=== PATIENT | female | born 1960 | race Caucasian/White ===

== ENCOUNTER 2022-09-14 11:22 | Inpatient (IN) | payer MEDICAID ==
[~2022-09-14] VITALS: Ht 167.6 cm; Wt 59.1 kg
[2022-09-14 19:19] LABS: BASOPHILS % (AUTO) 0.6 % (0-1); EOSINOPHILS # (AUTO) 0.1 X10'3 (0-0.9); EOSINOPHILS % (AUTO) 1.8 % (0-6); HEMATOCRIT 37.5 % (35.0-45.0); HEMOGLOBIN 12.9 g/dl (12.0-16.0); LYMPHOCYTES # (AUTO) 2.5 X10'3 (1.1-4.8); LYMPHOCYTES % (AUTO) 43.6 % (21-51); MEAN CORPUSCULAR HEMOGLOBIN 31.7 PG (27.0-31.0); MEAN CORPUSCULAR HGB CONC 34.3 g/dL (33.0-36.5); MEAN CORPUSCULAR VOLUME 92.4 FL (78-98); MEAN PLATELET VOLUME 7.6 FL (7.4-10.4); MONOCYTES # (AUTO) 0.5 X10'3 (0-0.9); MONOCYTES % (AUTO) 9.4 % (2-12); NEUTROPHILS # (AUTO) 2.6 X10'3 (1.8-7.7); NEUTROPHILS % (AUTO) 44.6 % (42-75); PLATELET COUNT 425 X10'3 (140-440); RED BLOOD COUNT 4.06 X10'6 (4.20-5.60); RED CELL DISTRIBUTION WIDTH 15.1 % (11.5-14.5); WHITE BLOOD COUNT 5.8 X10'3 (4.5-11.0)
[2022-09-14 19:27] LABS: ALANINE AMINOTRANSFERASE 61 U/L (12-78); ALBUMIN 3.1 G/DL (3.4-5.0); ALBUMIN/GLOBULIN RATIO 0.9 (1.1-1.5); ALKALINE PHOSPHATASE 93 IU/L (46-116); ANION GAP 6 (8-16); ASPARTATE AMINO TRANSFERASE 20 U/L (10-37); BILIRUBIN,TOTAL 0.2 MG/DL (0.1-1.0); BLOOD UREA NITROGEN 27 MG/DL (7-18); BUN/CREATININE RATIO 38.6 (6.6-38.0); CALCIUM 9.1 MG/DL (8.5-10.1); CHLORIDE 106 MMOL/L (99-107); GLUCOSE 91 MG/DL (70-104); POTASSIUM 4.1 MMOL/L (3.5-5.1); SODIUM 143 MMOL/L (135-145); TOTAL CARBON DIOXIDE 30.7 MMOL/L (24-32); TOTAL PROTEIN 6.5 G/DL (6.4-8.2); eGFR 85 ML/MIN
[2022-09-14 20:54] LABS: CLARITY,URINE SLIGHTLY CLOUDY (Clear); COLOR,URINE YELLOW (Yellow); GLUCOSE, URINE NEGATIVE (Neg); KETONES,URINE NEGATIVE (Neg); LEUKOCYTE ESTERASE ,URINE NEGATIVE (Neg); NITRITES, URINE NEGATIVE (Neg); OCCULT BLOOD,URINE NEGATIVE (Neg); PROTEIN,URINE NEGATIVE (Neg); UROBILINOGEN,URINE 0.2 E.U/dL (0.2-1.0)
[2022-09-14 21:19] LABS: UA COLLECTION TYPE NON-SPECIFIED
[2022-09-14 21:20] LABS: BACTERIA,URINE NONE SEEN /HPF (Neg); MUCUS STRANDS MODERATE /LPF (Neg); RBC,URINE NONE SEEN /HPF (0-2); SQUAMOUS EPITHELIAL CELL,UR FEW /LPF (FEW); WBC,URINE 0-4 /HPF (0-4)
[2022-09-14 21:21] LABS: URIC ACID CRYSTALS 2+ /HPF (NEGATIVE)
[2022-09-14] MEDS ORDERED: ondansetron/PF 4mg/2ml inj IV PRN (23:35)
[2022-09-14] MEDS ORDERED: potassium Cl 40MEQ/1/2NS 520ml 520 ML IV PRN (23:35)
[2022-09-14] MEDS ORDERED: acetaminophen 325mg tablet PO PRN (23:35)
[2022-09-14] MEDS ORDERED: potassium Cl 20 mEq SR tablet PO PRN ×2 (23:35)
[2022-09-14] MEDS ORDERED: magnesium Cl slow-release 64mg tablet PO PRN (23:35)
[2022-09-14] MEDS ORDERED: magnesium 4gm in 100ml NS 100 ML IV PRN (23:35)
[2022-09-15] MEDS: normal saline 1000ml 1,000 ML IV SCH ×3 (04:45→20:41)
[2022-09-15] MEDS: amLODIPine 5mg tablet PO SCH ×2 (04:59→08:18)
[2022-09-15 05:05] LABS: BASOPHILS % (AUTO) 0.6 % (0-1); EOSINOPHILS # (AUTO) 0.2 X10'3 (0-0.9); EOSINOPHILS % (AUTO) 2.7 % (0-6); HEMATOCRIT 37.3 % (35.0-45.0); HEMOGLOBIN 12.5 g/dl (12.0-16.0); LYMPHOCYTES # (AUTO) 3.1 X10'3 (1.1-4.8); LYMPHOCYTES % (AUTO) 53.1 % (21-51); MEAN CORPUSCULAR HEMOGLOBIN 31.5 PG (27.0-31.0); MEAN CORPUSCULAR HGB CONC 33.6 g/dL (33.0-36.5); MEAN PLATELET VOLUME 8.2 FL (7.4-10.4); MONOCYTES # (AUTO) 0.6 X10'3 (0-0.9); MONOCYTES % (AUTO) 9.8 % (2-12); NEUTROPHILS % (AUTO) 33.8 % (42-75); PLATELET COUNT 365 X10'3 (140-440); RED BLOOD COUNT 3.97 X10'6 (4.20-5.60); RED CELL DISTRIBUTION WIDTH 15.5 % (11.5-14.5); WHITE BLOOD COUNT 5.8 X10'3 (4.5-11.0)
[2022-09-15 05:30] LABS: ALANINE AMINOTRANSFERASE 53 U/L (12-78); ALBUMIN 2.9 G/DL (3.4-5.0); ALBUMIN/GLOBULIN RATIO 0.9 (1.1-1.5); ALKALINE PHOSPHATASE 84 IU/L (46-116); ANION GAP 8 (8-16); ASPARTATE AMINO TRANSFERASE 22 U/L (10-37); BILIRUBIN,TOTAL 0.3 MG/DL (0.1-1.0); BLOOD UREA NITROGEN 20 MG/DL (7-18); BUN/CREATININE RATIO 33.3 (6.6-38.0); CALCIUM 8.7 MG/DL (8.5-10.1); CHLORIDE 108 MMOL/L (99-107); GLUCOSE 90 MG/DL (70-104); POTASSIUM 3.7 MMOL/L (3.5-5.1); SODIUM 141 MMOL/L (135-145); TOTAL CARBON DIOXIDE 24.9 MMOL/L (24-32); TOTAL PROTEIN 6.1 G/DL (6.4-8.2); eGFR > 90 ML/MIN
[2022-09-15 06:00] LABS: PLATELET ESTIMATE NORMAL; TOTAL CELLS COUNTED 100
[2022-09-15] MEDS: K and/or MAG REPLACEMENT MC SCH ×2 (07:54→20:00)
[2022-09-15] MEDS: heparin, porcine 5000 units/ml vial SQ SCH ×2 (08:17→20:38)
[2022-09-15] MEDS ORDERED: LORazepam 2 mg/ml vial IV ONE ×2 (10:50→10:55)
--- NOTE | 2022-09-15 11:30 | NUR ---
called Doctor Crouch about the pt having anxiety about going to MRI. New meds have been ordered for MRI. Ativan will be given at 1200 for MRI
--- NOTE | 2022-09-15 12:58 | NUR ---
pt is in MRI
[2022-09-15] MEDS ORDERED: ERGO50002 PO (15:30)
[2022-09-15] MEDS ORDERED: HALO2TAB PO (15:30)
[2022-09-15] MEDS ORDERED: MELA1TAB52 PO (15:30)
[2022-09-15] MEDS ORDERED: AMLO10TA PO (15:30)
[2022-09-15 19:20] VITALS: BP 127/82
[2022-09-15 20:19] VITALS: BP 124/90
[2022-09-15] MEDS ORDERED: Melatonin 3mg tablet PO SCH (21:00)
--- NOTE | 2022-09-15 21:15 | NUR ---
DO Sandoval notified that patient had a ground level fall while trying to get out of bed by herself at approximately 2019. Patient was found by BANDAR Worley who stated patient was on her back and denied hitting her head. VSS with no c/o pain at this time. Patient was assisted back to bed with help from BANDAR Worley and Bernarda FAM. My assessment of patient showed no injuries and patient continues to deny any pain. Tabs and Bed alarm have been placed for patient safety. Will continue to monitor.
--- NOTE | 2022-09-15 21:24 | NUR ---
Received orders from MD to change current Melatonin order from 2mg PO to 3mg PO r/t not having 2MG tablets in pharmacy. New order placed at this time.
[2022-09-15] MEDS ORDERED: Melatonin 3mg tablet PO ONE (21:25)
[2022-09-15 22:00] VITALS: BP 129/73
[2022-09-16 06:00] VITALS: BP 135/83
[2022-09-16 06:03] LABS: EOSINOPHILS # (AUTO) 0.1 X10'3 (0-0.9); EOSINOPHILS % (AUTO) 2.6 % (0-6); LYMPHOCYTES # (AUTO) 2.3 X10'3 (1.1-4.8); MONOCYTES # (AUTO) 0.4 X10'3 (0-0.9); NEUTROPHILS # (AUTO) 1.7 X10'3 (1.8-7.7); WHITE BLOOD COUNT 4.6 X10'3 (4.5-11.0)
[2022-09-16 06:06] LABS: BASOPHILS % (AUTO) 0.7 % (0-1); HEMOGLOBIN 12.8 g/dl (12.0-16.0); MEAN CORPUSCULAR HEMOGLOBIN 31.8 PG (27.0-31.0); MEAN CORPUSCULAR HGB CONC 34.6 g/dL (33.0-36.5); MEAN CORPUSCULAR VOLUME 91.8 FL (78-98); MEAN PLATELET VOLUME 8.2 FL (7.4-10.4); MONOCYTES % (AUTO) 8.7 % (2-12); PLATELET COUNT 343 X10'3 (140-440); RED BLOOD COUNT 4.03 X10'6 (4.20-5.60); RED CELL DISTRIBUTION WIDTH 15.3 % (11.5-14.5)
--- NOTE | 2022-09-16 06:13 | NUR ---
Report given to Onel FAM.
[2022-09-16 06:25] LABS: ALANINE AMINOTRANSFERASE 55 U/L (12-78); ALBUMIN 3.1 G/DL (3.4-5.0); ALBUMIN/GLOBULIN RATIO 0.9 (1.1-1.5); ALKALINE PHOSPHATASE 74 IU/L (46-116); ANION GAP 8 (8-16); ASPARTATE AMINO TRANSFERASE 29 U/L (10-37); BILIRUBIN,TOTAL 0.7 MG/DL (0.1-1.0); BLOOD UREA NITROGEN 7 MG/DL (7-18); BUN/CREATININE RATIO 14.3 (6.6-38.0); CALCIUM 8.9 MG/DL (8.5-10.1); CHLORIDE 106 MMOL/L (99-107); CREATININE 0.49 MG/DL (0.40-0.90); GLUCOSE 86 MG/DL (70-104); POTASSIUM 3.5 MMOL/L (3.5-5.1); SODIUM 140 MMOL/L (135-145); TOTAL CARBON DIOXIDE 25.8 MMOL/L (24-32); TOTAL PROTEIN 6.5 G/DL (6.4-8.2); eGFR > 90 ML/MIN
--- NOTE | 2022-09-16 06:42 | NUR ---
Patient in room [facility] 360. I have received report from OLIVER FAM and had the opportunity to ask questions and assume patient care.
[2022-09-16] MEDS: K and/or MAG REPLACEMENT MC SCH ×2 (08:00→20:00)
[2022-09-16] MEDS: normal saline 1000ml 1,000 ML IV SCH ×3 (08:22→20:35)
[2022-09-16] MEDS: amLODIPine 5mg tablet PO SCH (08:23)
[2022-09-16] MEDS: heparin, porcine 5000 units/ml vial SQ SCH ×2 (08:25→20:38)
[2022-09-16 11:00] VITALS: BP 111/78
--- NOTE | 2022-09-16 15:20 | NUR ---
PAGER ID: [phone] MESSAGE: [phone] b Cj, daughter Sheba is here she would like to talk to you about her mothers condition and results from tests. thanks suzan [phone]
[2022-09-16 19:00] VITALS: BP 108/82
--- NOTE | 2022-09-16 19:05 | NUR ---
Patient in room [facility] 360. I have received report from RAY FAM and had the opportunity to ask questions and assume patient care.
--- NOTE | 2022-09-16 19:05 | NUR ---
Problems reprioritized. Patient report given, questions answered & plan of care reviewed with christina vasquez rn.
[2022-09-16] MEDS: haloperidol 1mg tablet PO SCH (20:37)
[2022-09-16] MEDS: Melatonin 3mg tablet PO SCH (20:38)
[2022-09-16 23:00] VITALS: BP 123/73
[2022-09-17] MEDS: normal saline 1000ml 1,000 ML IV SCH ×2 (05:29→21:35)
[2022-09-17 06:00] VITALS: BP 118/68
--- NOTE | 2022-09-17 06:27 | NUR ---
Problems reprioritized. Patient report given, questions answered & plan of care reviewed with RAY FAM.
[2022-09-17 06:39] LABS: BASOPHILS % (AUTO) 0.4 % (0-1); EOSINOPHILS # (AUTO) 0.1 X10'3 (0-0.9); EOSINOPHILS % (AUTO) 2.3 % (0-6); HEMATOCRIT 36.3 % (35.0-45.0); HEMOGLOBIN 12.4 g/dl (12.0-16.0); LYMPHOCYTES # (AUTO) 2.4 X10'3 (1.1-4.8); LYMPHOCYTES % (AUTO) 52.6 % (21-51); MEAN CORPUSCULAR HEMOGLOBIN 31.5 PG (27.0-31.0); MEAN CORPUSCULAR HGB CONC 34.2 g/dL (33.0-36.5); MEAN CORPUSCULAR VOLUME 92.2 FL (78-98); MEAN PLATELET VOLUME 7.9 FL (7.4-10.4); MONOCYTES # (AUTO) 0.4 X10'3 (0-0.9); MONOCYTES % (AUTO) 9.4 % (2-12); NEUTROPHILS # (AUTO) 1.6 X10'3 (1.8-7.7); NEUTROPHILS % (AUTO) 35.3 % (42-75); PLATELET COUNT 323 X10'3 (140-440); RED BLOOD COUNT 3.94 X10'6 (4.20-5.60); RED CELL DISTRIBUTION WIDTH 15.5 % (11.5-14.5); WHITE BLOOD COUNT 4.6 X10'3 (4.5-11.0)
--- NOTE | 2022-09-17 06:42 | NUR ---
Patient in room [facility] 360. I have received report from EVERT LOYD RN and had the opportunity to ask questions and assume patient care.
[2022-09-17 07:00] LABS: ALANINE AMINOTRANSFERASE 44 U/L (12-78); ALBUMIN 2.7 G/DL (3.4-5.0); ALBUMIN/GLOBULIN RATIO 0.8 (1.1-1.5); ALKALINE PHOSPHATASE 73 IU/L (46-116); ANION GAP 8 (8-16); ASPARTATE AMINO TRANSFERASE 19 U/L (10-37); BILIRUBIN,TOTAL 0.5 MG/DL (0.1-1.0); BLOOD UREA NITROGEN 12 MG/DL (7-18); BUN/CREATININE RATIO 18.8 (6.6-38.0); CALCIUM 8.8 MG/DL (8.5-10.1); CHLORIDE 107 MMOL/L (99-107); CREATININE 0.64 MG/DL (0.40-0.90); GLUCOSE 100 MG/DL (70-104); SODIUM 139 MMOL/L (135-145); TOTAL CARBON DIOXIDE 24.3 MMOL/L (24-32); eGFR > 90 ML/MIN
[2022-09-17 07:54] LABS: PLATELET ESTIMATE NORMAL; TOTAL CELLS COUNTED 100
[2022-09-17] MEDS: K and/or MAG REPLACEMENT MC SCH ×2 (08:00→20:00)
[2022-09-17] MEDS: heparin, porcine 5000 units/ml vial SQ SCH ×2 (10:29→21:40)
[2022-09-17 11:00] VITALS: BP 127/81
--- NOTE | 2022-09-17 13:38 | NUR ---
Problems reprioritized. Patient report given, questions answered & plan of care reviewed with Selene FAM on PCU for Pt transfer .
[2022-09-17 13:59] VITALS: BP 139/84
[2022-09-17 18:00] VITALS: BP 139/84
--- NOTE | 2022-09-17 18:40 | NUR ---
Patient in room U 3027. I have received report from CRISTEL Augustine and had the opportunity to ask questions and assume patient care. Patient sitting up in bed, no obvious distress
[2022-09-17] MEDS: amLODIPine 5mg tablet PO SCH (21:39)
[2022-09-17] MEDS: Melatonin 3mg tablet PO SCH (21:39)
[2022-09-17 22:00] VITALS: BP 117/77
[2022-09-17] MEDS: haloperidol 1mg tablet PO SCH (22:56)
[2022-09-18 03:23] VITALS: BP 110/78
[2022-09-18] MEDS: normal saline 1000ml 1,000 ML IV SCH ×2 (03:57→15:27)
[2022-09-18 06:17] LABS: EOSINOPHILS # (AUTO) 0.1 X10'3 (0-0.9); EOSINOPHILS % (AUTO) 2.4 % (0-6); HEMATOCRIT 36.3 % (35.0-45.0); HEMOGLOBIN 12.2 g/dl (12.0-16.0); LYMPHOCYTES # (AUTO) 2.5 X10'3 (1.1-4.8); LYMPHOCYTES % (AUTO) 49.9 % (21-51); MEAN CORPUSCULAR HEMOGLOBIN 31.7 PG (27.0-31.0); MEAN CORPUSCULAR HGB CONC 33.5 g/dL (33.0-36.5); MEAN CORPUSCULAR VOLUME 94.6 FL (78-98); MEAN PLATELET VOLUME 8.8 FL (7.4-10.4); MONOCYTES # (AUTO) 0.5 X10'3 (0-0.9); MONOCYTES % (AUTO) 9.2 % (2-12); NEUTROPHILS # (AUTO) 1.9 X10'3 (1.8-7.7); NEUTROPHILS % (AUTO) 37.5 % (42-75); PLATELET COUNT 284 X10'3 (140-440); RED BLOOD COUNT 3.84 X10'6 (4.20-5.60); RED CELL DISTRIBUTION WIDTH 15.5 % (11.5-14.5)
[2022-09-18 06:34] LABS: ALANINE AMINOTRANSFERASE 41 U/L (12-78); ALBUMIN 2.7 G/DL (3.4-5.0); ALBUMIN/GLOBULIN RATIO 0.9 (1.1-1.5); ALKALINE PHOSPHATASE 90 IU/L (46-116); ANION GAP 10 (8-16); ASPARTATE AMINO TRANSFERASE 21 U/L (10-37); BILIRUBIN,TOTAL 0.3 MG/DL (0.1-1.0); BLOOD UREA NITROGEN 16 MG/DL (7-18); BUN/CREATININE RATIO 27.1 (6.6-38.0); CALCIUM 8.5 MG/DL (8.5-10.1); CHLORIDE 109 MMOL/L (99-107); CREATININE 0.59 MG/DL (0.40-0.90); GLUCOSE 105 MG/DL (70-104); POTASSIUM 3.7 MMOL/L (3.5-5.1); SODIUM 142 MMOL/L (135-145); TOTAL CARBON DIOXIDE 23.2 MMOL/L (24-32); TOTAL PROTEIN 5.8 G/DL (6.4-8.2); eGFR > 90 ML/MIN
--- NOTE | 2022-09-18 06:44 | NUR ---
Problems reprioritized. Patient report given, questions answered & plan of care reviewed with CRISTEL Kidd.
[2022-09-18 07:17] VITALS: BP 128/77
[2022-09-18] MEDS: K and/or MAG REPLACEMENT MC SCH ×2 (09:34→20:00)
--- NOTE | 2022-09-18 09:35 | NUR ---
Initial: Pt admitted w/ acute encephalopathy per EMR. Currently on Regular diet w/ mostly 100% intake of meals meeting est needs at this time. LBM 09/16. No nutrition intervention implemented at this time, will continue to monitor. Recs; 1. Continue Regular diet as tolerated 2. Bowel care per rx 3. Scaled wts Addendum: 09/18/22 at [address] Amended: Links added.
[2022-09-18] MEDS: heparin, porcine 5000 units/ml vial SQ SCH ×2 (09:50→20:13)
[2022-09-18] MEDS: acetaminophen 325mg tablet PO PRN (10:07)
[2022-09-18 12:23] VITALS: BP 126/84
[2022-09-18 15:26] VITALS: BP 123/81
--- NOTE | 2022-09-18 20:00 | NUR ---
Agree with Miller YARDAGE CONTROL OPERATOR assessment.
[2022-09-18] MEDS: Melatonin 3mg tablet PO SCH (20:13)
[2022-09-18] MEDS: amLODIPine 5mg tablet PO SCH (20:14)
[2022-09-18] MEDS: haloperidol 1mg tablet PO SCH (21:00)
--- NOTE | 2022-09-19 00:20 | NUR ---
Problems reprioritized. Patient report given, questions answered & plan of care reviewed with corbin granados.
--- NOTE | 2022-09-19 00:44 | NUR ---
Patient in room PCU 3027. I have received report from Mirella FAM and had the opportunity to ask questions and assume patient care. patient acting like she knows everyone, pleasant and cooperative , will continue to monitor
[2022-09-19] MEDS: normal saline 1000ml 1,000 ML IV SCH ×2 (04:18→13:35)
--- NOTE | 2022-09-19 05:52 | NUR ---
Problems reprioritized. Patient report given, questions answered & plan of care reviewed with dipti FAM.
[2022-09-19 06:32] LABS: BASOPHILS % (AUTO) 0.6 % (0-1); EOSINOPHILS # (AUTO) 0.1 X10'3 (0-0.9); EOSINOPHILS % (AUTO) 2.3 % (0-6); HEMATOCRIT 35.7 % (35.0-45.0); HEMOGLOBIN 11.9 g/dl (12.0-16.0); LYMPHOCYTES # (AUTO) 2.6 X10'3 (1.1-4.8); LYMPHOCYTES % (AUTO) 47.3 % (21-51); MEAN CORPUSCULAR HEMOGLOBIN 31.8 PG (27.0-31.0); MEAN CORPUSCULAR HGB CONC 33.4 g/dL (33.0-36.5); MEAN CORPUSCULAR VOLUME 95.4 FL (78-98); MEAN PLATELET VOLUME 8.1 FL (7.4-10.4); MONOCYTES # (AUTO) 0.5 X10'3 (0-0.9); MONOCYTES % (AUTO) 9.5 % (2-12); NEUTROPHILS # (AUTO) 2.2 X10'3 (1.8-7.7); NEUTROPHILS % (AUTO) 40.3 % (42-75); PLATELET COUNT 264 X10'3 (140-440); RED BLOOD COUNT 3.74 X10'6 (4.20-5.60); WHITE BLOOD COUNT 5.6 X10'3 (4.5-11.0)
[2022-09-19 06:58] LABS: ALANINE AMINOTRANSFERASE 39 U/L (12-78); ALBUMIN 2.8 G/DL (3.4-5.0); ALBUMIN/GLOBULIN RATIO 0.8 (1.1-1.5); ALKALINE PHOSPHATASE 76 IU/L (46-116); ANION GAP 9 (8-16); ASPARTATE AMINO TRANSFERASE 20 U/L (10-37); BILIRUBIN,TOTAL 0.3 MG/DL (0.1-1.0); BLOOD UREA NITROGEN 15 MG/DL (7-18); BUN/CREATININE RATIO 28.3 (6.6-38.0); CALCIUM 8.6 MG/DL (8.5-10.1); CHLORIDE 109 MMOL/L (99-107); CREATININE 0.53 MG/DL (0.40-0.90); GLUCOSE 92 MG/DL (70-104); POTASSIUM 4.2 MMOL/L (3.5-5.1); SODIUM 139 MMOL/L (135-145); TOTAL CARBON DIOXIDE 21.4 MMOL/L (24-32); TOTAL PROTEIN 6.1 G/DL (6.4-8.2); eGFR > 90 ML/MIN
[2022-09-19 07:00] VITALS: BP 135/78
--- NOTE | 2022-09-19 07:00 | NUR ---
Patient in room [facility] 349. I have received report from Berenice FAM and had the opportunity to ask questions and assume patient care.
[2022-09-19] MEDS: K and/or MAG REPLACEMENT MC SCH ×2 (07:05→20:00)
[2022-09-19] MEDS: heparin, porcine 5000 units/ml vial SQ SCH ×2 (08:38→20:43)
[2022-09-19 11:48] VITALS: BP 113/87
[2022-09-19 18:00] VITALS: BP 127/86
--- NOTE | 2022-09-19 18:13 | NUR ---
Problems reprioritized. Patient report given, questions answered & plan of care reviewed with Alexandra. Addendum: 09/19/22 at 1814 by Maria Teresa Mccray RN Alexandra FAM
--- NOTE | 2022-09-19 18:42 | NUR ---
Patient in room [facility] 349. I have received report from CRISTEL Morel and had the opportunity to ask questions and assume patient care.
[2022-09-19] MEDS: amLODIPine 5mg tablet PO SCH (20:42)
[2022-09-19] MEDS: Melatonin 3mg tablet PO SCH (20:42)
[2022-09-19] MEDS: haloperidol 1mg tablet PO SCH (20:42)
[2022-09-19 22:00] VITALS: BP 121/88
[2022-09-20] MEDS: normal saline 1000ml 1,000 ML IV SCH ×3 (04:18→19:35)
--- NOTE | 2022-09-20 06:40 | NUR ---
Problems reprioritized. Patient report given, questions answered & plan of care reviewed with CRISTEL Morel and CRISTEL Chacon.
[2022-09-20] MEDS: heparin, porcine 5000 units/ml vial SQ SCH ×2 (07:15→20:23)
[2022-09-20 08:00] VITALS: BP 124/91
[2022-09-20] MEDS: K and/or MAG REPLACEMENT MC SCH ×2 (08:00→20:00)
--- NOTE | 2022-09-20 11:37 | NUR ---
Patient in room [facility] 349. I have received report from Alexandra FAM and had the opportunity to ask questions and assume patient care.
[2022-09-20 12:00] VITALS: BP 117/85
[2022-09-20 18:00] VITALS: BP 116/74
--- NOTE | 2022-09-20 18:15 | NUR ---
Patient in room [facility] 349. I have received report from CRISTEL Morel and had the opportunity to ask questions and assume patient care.
--- NOTE | 2022-09-20 18:59 | NUR ---
Problems reprioritized. Patient report given, questions answered & plan of care reviewed with Alexandra FAM.
[2022-09-20] MEDS: haloperidol 1mg tablet PO SCH (20:17)
[2022-09-20] MEDS: Melatonin 3mg tablet PO SCH (20:18)
[2022-09-20] MEDS: amLODIPine 5mg tablet PO SCH (20:18)
[2022-09-20 22:00] VITALS: BP 121/71
[2022-09-21] MEDS: normal saline 1000ml 1,000 ML IV SCH ×2 (04:23→15:35)
[2022-09-21 06:00] VITALS: BP 105/76
--- NOTE | 2022-09-21 06:20 | NUR ---
Patient in room [facility] 349. I have received report from CRISTEL Morris and had the opportunity to ask questions and assume patient care.
--- NOTE | 2022-09-21 06:39 | NUR ---
Problems reprioritized. Patient report given, questions answered & plan of care reviewed with CRISTEL Elliott.
[2022-09-21] MEDS: K and/or MAG REPLACEMENT MC SCH ×2 (07:00→20:00)
--- NOTE | 2022-09-21 07:02 | NUR ---
Patient in room [facility] 349. I have received report from FIORELLA FAM and had the opportunity to ask questions and assume patient care.
[2022-09-21] MEDS: heparin, porcine 5000 units/ml vial SQ SCH ×2 (08:15→20:05)
[2022-09-21 10:00] VITALS: BP 142/85
--- NOTE | 2022-09-21 17:23 | NUR ---
PAGER ID: [phone] MESSAGE: LINO MITCHELL#[phone]- Pt is drinking and eating very well. urine output is great! can we saline lock her? Thank you. Lexi [phone]
--- NOTE | 2022-09-21 17:52 | NUR ---
Student documentation: I have reviewed and agree with all interventions, assessments performed and documented by Fawn ROSARIO Student.
[2022-09-21 18:00] VITALS: BP 116/74
--- NOTE | 2022-09-21 18:15 | NUR ---
Problems reprioritized. Patient report given, questions answered & plan of care reviewed with CRISTEL Morris.
--- NOTE | 2022-09-21 18:50 | NUR ---
Patient in room [facility] 349. I have received report from CRISTEL Elliott and had the opportunity to ask questions and assume patient care.
[2022-09-21] MEDS ORDERED: magnesium hydroxide 30ml (MOM) UD suspension PO PRN (19:35)
[2022-09-21] MEDS: amLODIPine 5mg tablet PO SCH (20:03)
[2022-09-21] MEDS: haloperidol 1mg tablet PO SCH (20:04)
[2022-09-21] MEDS: Melatonin 3mg tablet PO SCH (20:04)
[2022-09-21] MEDS: sennosides 8.6mg tablet PO SCH (20:04)
[2022-09-21 22:00] VITALS: BP 103/65
[2022-09-22 06:00] VITALS: BP 112/81
--- NOTE | 2022-09-22 06:50 | NUR ---
Problems reprioritized. Patient report given, questions answered & plan of care reviewed with CRISTEL Vitale.
--- NOTE | 2022-09-22 06:59 | NUR ---
Patient in room [facility] 349A. I have received report from CRISTEL BARROS and had the opportunity to ask questions and assume patient care.
[2022-09-22] MEDS: K and/or MAG REPLACEMENT MC SCH ×2 (08:00→20:00)
[2022-09-22] MEDS: heparin, porcine 5000 units/ml vial SQ SCH ×2 (08:39→21:08)
[2022-09-22 10:00] VITALS: BP 125/78
[2022-09-22 18:00] VITALS: BP 138/79
--- NOTE | 2022-09-22 19:05 | NUR ---
Problems reprioritized. Patient report given, questions answered & plan of care reviewed with JAY JAY RN.
[2022-09-22] MEDS: sennosides 8.6mg tablet PO SCH (21:06)
[2022-09-22] MEDS: amLODIPine 5mg tablet PO SCH (21:07)
[2022-09-22] MEDS: Melatonin 3mg tablet PO SCH (21:07)
[2022-09-22] MEDS: haloperidol 1mg tablet PO SCH (21:07)
[2022-09-22 22:00] VITALS: BP 127/88
[2022-09-23 06:00] VITALS: BP 123/77
--- NOTE | 2022-09-23 06:15 | NUR ---
Patient in room [facility] 357. I have received report from Pat RN and had the opportunity to ask questions and assume patient care.
[2022-09-23] MEDS: K and/or MAG REPLACEMENT MC SCH ×2 (07:33→20:54)
[2022-09-23] MEDS: heparin, porcine 5000 units/ml vial SQ SCH ×2 (08:07→21:35)
[2022-09-23 10:00] VITALS: BP 111/85
--- NOTE | 2022-09-23 12:03 | NUR ---
CLINICAL INSTRUCTOR, I REVIEWED STUDENT NURSE CHARTING
--- NOTE | 2022-09-23 17:30 | NUR ---
I have reviewed and agree with all interventions, assessments performed and documented by FABIANA Bowles.
[2022-09-23 18:00] VITALS: BP 128/78
--- NOTE | 2022-09-23 18:26 | NUR ---
Cared for patient today. Patient stated that she cant have pork. Diet updated with dietary.
--- NOTE | 2022-09-23 18:27 | NUR ---
Problems reprioritized. Patient report given, questions answered & plan of care reviewed with Sabiha FAM.
[2022-09-23] MEDS: sennosides 8.6mg tablet PO SCH (21:00)
[2022-09-23] MEDS: amLODIPine 5mg tablet PO SCH (21:35)
[2022-09-23] MEDS: haloperidol 1mg tablet PO SCH (21:35)
[2022-09-23] MEDS: Melatonin 3mg tablet PO SCH (21:35)
[2022-09-23 22:00] VITALS: BP 115/78
[2022-09-24 06:00] VITALS: BP 139/77
--- NOTE | 2022-09-24 06:00 | NUR ---
Patient in room [facility] 356. I have received report from Sabiha Rn and nursing executive Crystal and had the opportunity to ask questions and assume patient care.
--- NOTE | 2022-09-24 06:11 | NUR ---
Report given to mechanical engineering officer. All questions answered.
[2022-09-24] MEDS: K and/or MAG REPLACEMENT MC SCH ×2 (08:00→20:18)
[2022-09-24 09:08] LABS: BASOPHILS % (AUTO) 0.8 % (0-1); EOSINOPHILS # (AUTO) 0.1 X10'3 (0-0.9); EOSINOPHILS % (AUTO) 2.3 % (0-6); HEMOGLOBIN 13.6 g/dl (12.0-16.0); LYMPHOCYTES # (AUTO) 2.6 X10'3 (1.1-4.8); LYMPHOCYTES % (AUTO) 43.8 % (21-51); MEAN CORPUSCULAR HEMOGLOBIN 32.4 PG (27.0-31.0); MEAN CORPUSCULAR HGB CONC 34.1 g/dL (33.0-36.5); MEAN CORPUSCULAR VOLUME 94.9 FL (78-98); MEAN PLATELET VOLUME 8.1 FL (7.4-10.4); MONOCYTES # (AUTO) 0.6 X10'3 (0-0.9); MONOCYTES % (AUTO) 10.2 % (2-12); NEUTROPHILS # (AUTO) 2.5 X10'3 (1.8-7.7); NEUTROPHILS % (AUTO) 42.9 % (42-75); PLATELET COUNT 257 X10'3 (140-440); RED BLOOD COUNT 4.22 X10'6 (4.20-5.60); RED CELL DISTRIBUTION WIDTH 16.8 % (11.5-14.5); WHITE BLOOD COUNT 5.9 X10'3 (4.5-11.0)
[2022-09-24 09:23] LABS: ALANINE AMINOTRANSFERASE 28 U/L (12-78); ALBUMIN 3.2 G/DL (3.4-5.0); ALBUMIN/GLOBULIN RATIO 0.9 (1.1-1.5); ALKALINE PHOSPHATASE 80 IU/L (46-116); ANION GAP 9 (8-16); ASPARTATE AMINO TRANSFERASE 14 U/L (10-37); BILIRUBIN,TOTAL 0.6 MG/DL (0.1-1.0); BLOOD UREA NITROGEN 14 MG/DL (7-18); BUN/CREATININE RATIO 20.6 (6.6-38.0); CALCIUM 9.1 MG/DL (8.5-10.1); CHLORIDE 105 MMOL/L (99-107); CREATININE 0.68 MG/DL (0.40-0.90); GLUCOSE 98 MG/DL (70-104); POTASSIUM 4.3 MMOL/L (3.5-5.1); SODIUM 135 MMOL/L (135-145); TOTAL CARBON DIOXIDE 20.6 MMOL/L (24-32); TOTAL PROTEIN 6.9 G/DL (6.4-8.2); eGFR 88 ML/MIN
[2022-09-24 10:00] VITALS: BP 131/66
[2022-09-24] MEDS: heparin, porcine 5000 units/ml vial SQ SCH ×2 (11:18→19:36)
--- NOTE | 2022-09-24 16:49 | NUR ---
Cared for patient today. Patient was encouraged to get up out of bed per Dr. Sandoavl. Patient is to get into a wheel chair throughout the shifts to gain strength. Patient was up today three times, once with PT, twice with me. Patient wheeled around the unit using mostly her legs/feet to get around x 6 each time.
--- NOTE | 2022-09-24 17:03 | NUR ---
Per Dr. Sandoval, throughout each shift Patient is to be encouraged to wheel around the unit in a wheelchair using her feet/legs to gain strength. Please attach her bed alarm to the wheelchair, aid or nurse needs to walk with patient. Addendum: 09/24/22 at 1710 by Jelena Moore LVN Amended: Links added.
[2022-09-24] MEDS: lactose-reduced food (Ensure High Protein) 237ml bottle PO SCH (18:00)
--- NOTE | 2022-09-24 18:07 | NUR ---
Problems reprioritized. Patient report given, questions answered & plan of care reviewed with February RN and certified nursing attendant
--- NOTE | 2022-09-24 18:35 | NUR ---
Problems reprioritized. Patient report given, questions answered & plan of care reviewed with Amy FAM.
[2022-09-24] MEDS: sennosides 8.6mg tablet PO SCH (19:35)
[2022-09-24] MEDS: haloperidol 1mg tablet PO SCH (19:35)
[2022-09-24] MEDS: Melatonin 3mg tablet PO SCH (19:35)
[2022-09-24] MEDS: amLODIPine 5mg tablet PO SCH (19:36)
[2022-09-24 22:00] VITALS: BP 119/76
[2022-09-25 07:30] VITALS: BP 120/82
[2022-09-25] MEDS: K and/or MAG REPLACEMENT MC SCH ×2 (08:00→20:00)
[2022-09-25] MEDS: lactose-reduced food (Ensure High Protein) 237ml bottle PO SCH ×3 (08:00→18:00)
[2022-09-25] MEDS: heparin, porcine 5000 units/ml vial SQ SCH ×2 (08:17→19:53)
--- NOTE | 2022-09-25 08:50 | NUR ---
Reassessment: Pt PO continues mostly ~100% avg regular diet exceeding estimated needs. Noted Ensure High Protein ordered by DO last night per EMR; YANICK paged DO regarding ONS stoppage given adequate meal intake this LOS if agreeable. LBM 09/22 receiving routine senna HS w/ PRN MoM available yet to be given per EMR. No nutrition intervention at this time. Will continue to monitor. Recs: 1. Continue Regular diet as tolerated 2. routine bowel care; utilize PRN bowel regimen 3. Scaled wt this admit; subsequent weekly wts Addendum: 09/25/22 at [address] Amended: Links added.
[2022-09-25] MEDS: docusate sod 100mg capsule PO SCH ×2 (11:13→19:52)
[2022-09-25 12:00] VITALS: BP 121/83
[2022-09-25 18:00] VITALS: BP 113/79
--- NOTE | 2022-09-25 18:37 | NUR ---
Problems reprioritized. Patient report given, questions answered & plan of care reviewed with CRISTEL Landis.
[2022-09-25] MEDS: haloperidol 1mg tablet PO SCH (19:51)
[2022-09-25] MEDS: amLODIPine 5mg tablet PO SCH (19:52)
[2022-09-25] MEDS: Melatonin 3mg tablet PO SCH (19:52)
[2022-09-25] MEDS: sennosides 8.6mg tablet PO SCH (19:54)
[2022-09-25 22:00] VITALS: BP 117/69
[2022-09-26 07:30] VITALS: BP 122/83
[2022-09-26] MEDS: docusate sod 100mg capsule PO SCH ×2 (07:57→20:05)
[2022-09-26] MEDS: heparin, porcine 5000 units/ml vial SQ SCH ×2 (07:57→20:06)
[2022-09-26] MEDS: K and/or MAG REPLACEMENT MC SCH ×2 (08:00→20:00)
[2022-09-26] MEDS: lactose-reduced food (Ensure High Protein) 237ml bottle PO SCH ×3 (08:47→18:59)
[2022-09-26 11:00] VITALS: BP 127/94
[2022-09-26 17:20] VITALS: BP 121/72
--- NOTE | 2022-09-26 17:21 | NUR ---
Student documentation: I have reviewed and agree with all interventions, assessments performed and documented by SN Kye.
[2022-09-26 19:30] VITALS: BP 121/72
[2022-09-26] MEDS: Melatonin 3mg tablet PO SCH (20:05)
[2022-09-26] MEDS: sennosides 8.6mg tablet PO SCH (20:05)
[2022-09-26] MEDS: amLODIPine 5mg tablet PO SCH (20:05)
[2022-09-26 23:08] VITALS: BP 129/75
[2022-09-27] MEDS: temazepam 15mg capsule PO PRN ×2 (00:12→21:08)
[2022-09-27 06:00] VITALS: BP 141/90
--- NOTE | 2022-09-27 06:10 | NUR ---
Patient in room [facility] 356. I have received report from CRISTEL Perez and had the opportunity to ask questions and assume patient care.
--- NOTE | 2022-09-27 06:15 | NUR ---
Problems reprioritized. Patient report given, questions answered & plan of care reviewed with CRISTEL Benavides.
[2022-09-27] MEDS: lactose-reduced food (Ensure High Protein) 237ml bottle PO SCH ×3 (08:00→18:00)
[2022-09-27 09:34] LABS: BASOPHILS % (AUTO) 0.6 % (0-1); EOSINOPHILS # (AUTO) 0.1 X10'3 (0-0.9); EOSINOPHILS % (AUTO) 2.1 % (0-6); HEMATOCRIT 43.1 % (35.0-45.0); HEMOGLOBIN 14.5 g/dl (12.0-16.0); LYMPHOCYTES # (AUTO) 2.5 X10'3 (1.1-4.8); LYMPHOCYTES % (AUTO) 41.5 % (21-51); MEAN CORPUSCULAR HEMOGLOBIN 31.8 PG (27.0-31.0); MEAN CORPUSCULAR HGB CONC 33.5 g/dL (33.0-36.5); MEAN CORPUSCULAR VOLUME 94.8 FL (78-98); MEAN PLATELET VOLUME 8.3 FL (7.4-10.4); MONOCYTES # (AUTO) 0.5 X10'3 (0-0.9); MONOCYTES % (AUTO) 8.5 % (2-12); NEUTROPHILS # (AUTO) 2.8 X10'3 (1.8-7.7); NEUTROPHILS % (AUTO) 47.3 % (42-75); PLATELET COUNT 330 X10'3 (140-440); RED BLOOD COUNT 4.54 X10'6 (4.20-5.60); RED CELL DISTRIBUTION WIDTH 17.1 % (11.5-14.5)
[2022-09-27 09:47] LABS: ALANINE AMINOTRANSFERASE 29 U/L (12-78); ALBUMIN 3.6 G/DL (3.4-5.0); ALBUMIN/GLOBULIN RATIO 0.9 (1.1-1.5); ALKALINE PHOSPHATASE 80 IU/L (46-116); ANION GAP 11 (8-16); ASPARTATE AMINO TRANSFERASE 17 U/L (10-37); BILIRUBIN,TOTAL 0.5 MG/DL (0.1-1.0); BLOOD UREA NITROGEN 18 MG/DL (7-18); BUN/CREATININE RATIO 24.3 (6.6-38.0); CALCIUM 9.9 MG/DL (8.5-10.1); CHLORIDE 103 MMOL/L (99-107); CREATININE 0.74 MG/DL (0.40-0.90); GLUCOSE 119 MG/DL (70-104); POTASSIUM 4.2 MMOL/L (3.5-5.1); SODIUM 139 MMOL/L (135-145); TOTAL CARBON DIOXIDE 25.3 MMOL/L (24-32); TOTAL PROTEIN 7.8 G/DL (6.4-8.2); eGFR 80 ML/MIN
[2022-09-27] MEDS: K and/or MAG REPLACEMENT MC SCH ×2 (09:58→20:00)
[2022-09-27 10:00] VITALS: BP 118/93
--- NOTE | 2022-09-27 10:30 | NUR ---
Complete physical assessment completed
[2022-09-27] MEDS: docusate sod 100mg capsule PO SCH ×2 (10:44→21:08)
[2022-09-27] MEDS: heparin, porcine 5000 units/ml vial SQ SCH ×2 (10:44→21:08)
--- NOTE | 2022-09-27 14:56 | NUR ---
Spoke with Makayla, primary RN, regarding the age and origin of patient's elizalde catheter. The elizalde catheter was apparently placed at a [place] hospital three days before admit here. It is unclear the date it was placed and the indication. EMR mentions paper records from [place] in our chart. documented that the patient has urinary retention but there is no order for a elizalde. Makayla will ask MD, and will likely at least replace the old elizalde with a new one, that has orders. Will continue to monitor.
[2022-09-27 18:00] VITALS: BP 119/86
--- NOTE | 2022-09-27 19:15 | NUR ---
Problems reprioritized. Patient report given, questions answered & plan of care reviewed with CRISTEL Rousseau.
[2022-09-27] MEDS: sennosides 8.6mg tablet PO SCH (21:08)
[2022-09-27] MEDS: Melatonin 3mg tablet PO SCH (21:08)
[2022-09-27] MEDS: amLODIPine 5mg tablet PO SCH (21:11)
[2022-09-27 22:00] VITALS: BP 120/79
[2022-09-28 02:00] VITALS: BP 115/77
[2022-09-28 06:00] VITALS: BP 133/89
--- NOTE | 2022-09-28 06:10 | NUR ---
Patient in room [facility] 356. I have received report from CRISTEL Rousseau and had the opportunity to ask questions and assume patient care.
--- NOTE | 2022-09-28 06:16 | NUR ---
Problems reprioritized. Patient report given, questions answered & plan of care reviewed with Mik Benavides. Addendum: 09/28/22 at 0617 by Onelia Mancilla RN Amended: Links added.
[2022-09-28] MEDS: K and/or MAG REPLACEMENT MC SCH ×2 (07:45→20:00)
[2022-09-28] MEDS: lactose-reduced food (Ensure High Protein) 237ml bottle PO SCH ×3 (07:45→18:00)
[2022-09-28 10:00] VITALS: BP 131/83
[2022-09-28] MEDS: docusate sod 100mg capsule PO SCH ×2 (10:42→21:20)
[2022-09-28] MEDS: heparin, porcine 5000 units/ml vial SQ SCH ×2 (10:42→21:18)
--- NOTE | 2022-09-28 13:18 | NUR ---
Student documentation: Discontinued elizalde with Instructor Claude and replaced elizalde catheter at 1300. Empty urine color was dark yellow 750 oz. SN Leticia Hayes
[2022-09-28 18:00] VITALS: BP 151/76
--- NOTE | 2022-09-28 18:50 | NUR ---
Problems reprioritized. Patient report given, questions answered & plan of care reviewed with CRISTEL Rousseau.
--- NOTE | 2022-09-28 18:55 | NUR ---
Patient in room [facility] 356. I have received report from CRISTEL WHYTE and had the opportunity to ask questions and assume patient care. Addendum: 09/28/22 at 1856 by Onelia Mancilla RN Amended: Links added.
--- NOTE | 2022-09-28 20:25 | NUR ---
CALLED DAUGHTER PER PT REQUEST. she asked about her bipolar medications. tols her we did not have her on any. pt stated she could not remember what she is taking. Daughter reported Salima Condon was giving her seroquel and it made her rolan mean and aggressive. Told her not to ever give her it again the they put her on haldol which she said made her lethargic and her memory worse. Addendum: 09/29/22 at 0625 by Onelia Mancilla RN Amended: Links added.
[2022-09-28] MEDS: amLODIPine 5mg tablet PO SCH (21:19)
[2022-09-28] MEDS: temazepam 15mg capsule PO PRN (21:19)
[2022-09-28] MEDS: Melatonin 3mg tablet PO SCH (21:20)
[2022-09-28] MEDS: sennosides 8.6mg tablet PO SCH (21:20)
[2022-09-28] MEDS: acetaminophen 325mg tablet PO PRN (21:20)
[2022-09-28 22:00] VITALS: BP 146/84
--- NOTE | 2022-09-29 05:24 | NUR ---
pt ressting eyes closed without changes.
[2022-09-29 06:00] VITALS: BP 117/78
--- NOTE | 2022-09-29 06:49 | NUR ---
Problems reprioritized. Patient report given, questions answered & plan of care reviewed with CRISTEL WHYTE. Addendum: 09/29/22 at 0650 by Onelia Mancilla RN Amended: Links added.
--- NOTE | 2022-09-29 06:50 | NUR ---
Patient in room [facility] 356. I have received report from CRISTEL Rousseau and had the opportunity to ask questions and assume patient care.
--- NOTE | 2022-09-29 06:59 | NUR ---
Problems reprioritized. Patient report given, questions answered & plan of care reviewed with CRISTEL WHYTE. Addendum: 09/29/22 at 0700 by Onelia Mancilla RN Amended: Links added.
[2022-09-29] MEDS: K and/or MAG REPLACEMENT MC SCH (07:32)
[2022-09-29] MEDS: lactose-reduced food (Ensure High Protein) 237ml bottle PO SCH ×3 (08:00→18:55)
[2022-09-29 10:00] VITALS: BP 118/76
[2022-09-29] MEDS: docusate sod 100mg capsule PO SCH ×2 (10:14→21:19)
[2022-09-29] MEDS: heparin, porcine 5000 units/ml vial SQ SCH ×2 (10:17→21:21)
--- NOTE | 2022-09-29 18:50 | NUR ---
Problems reprioritized. Patient report given, questions answered & plan of care reviewed with CRISTEL Rousseau.
[2022-09-29] MEDS: Melatonin 3mg tablet PO SCH (21:19)
[2022-09-29] MEDS: sennosides 8.6mg tablet PO SCH (21:19)
[2022-09-29] MEDS: temazepam 15mg capsule PO PRN (21:20)
[2022-09-29] MEDS: amLODIPine 5mg tablet PO SCH (21:20)
[2022-09-29 22:00] VITALS: BP 115/73
[2022-09-30 06:00] VITALS: BP 117/83
--- NOTE | 2022-09-30 06:37 | NUR ---
Problems reprioritized. Patient report given, questions answered & plan of care reviewed with CRISTEL ARCHER. Addendum: 09/30/22 at 0638 by Onelia Mancilla RN Amended: Links added.
[2022-09-30] MEDS: lactose-reduced food (Ensure High Protein) 237ml bottle PO SCH ×3 (08:00→18:00)
[2022-09-30] MEDS: K and/or MAG REPLACEMENT MC SCH ×2 (08:00→20:00)
[2022-09-30] MEDS: docusate sod 100mg capsule PO SCH ×2 (08:38→21:10)
[2022-09-30] MEDS: heparin, porcine 5000 units/ml vial SQ SCH ×2 (08:39→21:11)
--- NOTE | 2022-09-30 08:43 | NUR ---
scanner was not working for [employer]. entered manually.
[2022-09-30 10:00] VITALS: BP 117/83
--- NOTE | 2022-09-30 11:56 | NUR ---
as clinical instructor i reviewed student nurse charting
[2022-09-30] MEDS ORDERED: ESCI5TAB PO (14:30)
[2022-09-30] MEDS: ESCITALOPRAM OXALATE 5 MG TABLET PO SCH (17:32)
[2022-09-30 18:00] VITALS: BP 132/86
[2022-09-30] MEDS: sennosides 8.6mg tablet PO SCH (21:10)
[2022-09-30] MEDS: Melatonin 3mg tablet PO SCH (21:10)
[2022-09-30] MEDS: temazepam 15mg capsule PO PRN (21:10)
[2022-09-30] MEDS: amLODIPine 5mg tablet PO SCH (21:11)
[2022-09-30 22:00] VITALS: BP 129/75
--- NOTE | 2022-10-01 05:25 | NUR ---
RESTING EYES CLOSED WITHOUT CHANGES.
[2022-10-01 06:00] VITALS: BP 129/76
--- NOTE | 2022-10-01 06:20 | NUR ---
Problems reprioritized. Patient report given, questions answered & plan of care reviewed with CRISTEL ARCHER. Addendum: 10/01/22 at 0622 by Onelia Mancilla RN Amended: Links added.
[2022-10-01] MEDS: K and/or MAG REPLACEMENT MC SCH ×2 (08:00→19:50)
[2022-10-01] MEDS: docusate sod 100mg capsule PO SCH ×2 (08:10→19:50)
[2022-10-01] MEDS: ESCITALOPRAM OXALATE 5 MG TABLET PO SCH (08:10)
[2022-10-01] MEDS: heparin, porcine 5000 units/ml vial SQ SCH ×2 (08:12→19:49)
[2022-10-01] MEDS: lactose-reduced food (Ensure High Protein) 237ml bottle PO SCH ×3 (08:13→18:00)
--- NOTE | 2022-10-01 09:59 | NUR ---
Reassessment: Pt continues on Regular diet w mostly 75-100% intake of meals meeting est needs. Pt also continues to receive Ensure High protein TID though the ONS is not indicated for this pt as she is meeting her needs through the meals alone. Recommend d/c ONS. LBM 09/30 receiving routine bowel care. Will continue to monitor. Recs: 1. Continue Regular diet as tolerated 2. Discontinue Ensure High Protein TID 3. routine bowel care; utilize PRN bowel regimen 4. Scaled wt this admit; subsequent weekly wts Addendum: 10/01/22 at [address] Amended: Links added.
--- NOTE | 2022-10-01 13:00 | NUR ---
Spoke with daughter and patient. Patient did in fact have a elizalde catheter prior to leaving [place]. Trial dc was done, patient was unable to urinate. She will be dc home with catheter. For easier mobility a leg bag can be utilized on dc. Explained it will require frequent emptying. Daughter states patient would actually be staying in the "big house" with her friend as she would not be able to fit a wheel chair in the trailer.
[2022-10-01 18:00] VITALS: BP 134/89
--- NOTE | 2022-10-01 19:01 | NUR ---
report to Ellie FAM
[2022-10-01] MEDS: temazepam 15mg capsule PO PRN (19:49)
[2022-10-01] MEDS: sennosides 8.6mg tablet PO SCH (19:49)
[2022-10-01] MEDS: Melatonin 3mg tablet PO SCH (19:49)
[2022-10-01] MEDS: amLODIPine 5mg tablet PO SCH (19:53)
[2022-10-01 22:00] VITALS: BP 122/77
[2022-10-02 06:00] VITALS: BP 128/80
--- NOTE | 2022-10-02 06:53 | NUR ---
Patient in room [facility] 359. I have received report from Ellie FAM and had the opportunity to ask questions and assume patient care.
[2022-10-02] MEDS: K and/or MAG REPLACEMENT MC SCH ×2 (08:00→20:00)
[2022-10-02] MEDS: lactose-reduced food (Ensure High Protein) 237ml bottle PO SCH ×3 (08:00→18:00)
[2022-10-02] MEDS: ESCITALOPRAM OXALATE 5 MG TABLET PO SCH (08:46)
[2022-10-02] MEDS: docusate sod 100mg capsule PO SCH ×2 (08:46→21:04)
[2022-10-02] MEDS: heparin, porcine 5000 units/ml vial SQ SCH ×2 (08:48→21:05)
[2022-10-02 10:00] VITALS: BP 131/89
[2022-10-02 17:00] VITALS: BP 100/77
[2022-10-02 18:00] VITALS: BP 129/79
--- NOTE | 2022-10-02 18:20 | NUR ---
Patient in room [facility] 359. I have received report from CRISTEL Driscoll and had the opportunity to ask questions and assume patient care.
--- NOTE | 2022-10-02 18:28 | NUR ---
Problems reprioritized. Patient report given, questions answered & plan of care reviewed with Alexandra FAM.
[2022-10-02] MEDS: Melatonin 3mg tablet PO SCH (21:04)
[2022-10-02] MEDS: amLODIPine 5mg tablet PO SCH (21:04)
[2022-10-02] MEDS: sennosides 8.6mg tablet PO SCH (21:05)
[2022-10-02 22:00] VITALS: BP 134/81
[2022-10-03 06:00] VITALS: BP 126/81
--- NOTE | 2022-10-03 06:28 | NUR ---
Problems reprioritized. Patient report given, questions answered & plan of care reviewed with FABIANA Bowles.
--- NOTE | 2022-10-03 06:30 | NUR ---
Patient in room [facility] 359. I have received report from Alexandra FAM and had the opportunity to ask questions and assume patient care.
[2022-10-03] MEDS: K and/or MAG REPLACEMENT MC SCH ×2 (08:00→19:10)
[2022-10-03] MEDS: docusate sod 100mg capsule PO SCH ×2 (08:35→20:10)
[2022-10-03] MEDS: ESCITALOPRAM OXALATE 5 MG TABLET PO SCH (08:35)
[2022-10-03] MEDS: heparin, porcine 5000 units/ml vial SQ SCH ×2 (08:36→20:11)
[2022-10-03] MEDS: lactose-reduced food (Ensure High Protein) 237ml bottle PO SCH ×3 (08:41→18:00)
--- NOTE | 2022-10-03 09:18 | NUR ---
going on break handing my patient to charge nurse Michael
--- NOTE | 2022-10-03 09:32 | NUR ---
back from break assuming care of my patients
[2022-10-03 10:00] VITALS: BP 115/71
--- NOTE | 2022-10-03 14:47 | NUR ---
Patient has discharge orders in the chart since 10/01/22. Patient family was waiting for everything medical to assess house for ramp. I spoke with patient daughter and she stated that everything medical evaluated and ramp wont work. I spoke with Mili the caser shoe parts and she will work on a medical transport from the hospital to patient home.
--- NOTE | 2022-10-03 17:15 | NUR ---
Patient daughter Sheba Aguilar stopped by to visit patient, who is also a family friend. She stated that Sheba told her that patient was being discharged. Lauren stated that patient can not be dropped off at home tomorrow until 5pm because no one will be home and she works all day. Lauren states that everything medical wasn't able to put a ramp at her house and she doesn't have money to pay for one. Also, patient will be sleeping on a couch and this is not a safe environment for the patient. Patient has medical now and needs to be placed in a SNF. Lauren stated that Sheba will file a lawsuit if patient is discharged in an unsafe environment. Plus, Sheba is also waiting to have surgery and unable to care for her mom. I advised Lauren to call case management in the morning or have Sheba call.
[2022-10-03 18:00] VITALS: BP 139/81
--- NOTE | 2022-10-03 18:38 | NUR ---
BILLBOARD ERECTOR HELPER documentation: I have reviewed and agree with all interventions, assessments performed and documented by Jelena Moore LVN .
[2022-10-03] MEDS: sennosides 8.6mg tablet PO SCH (20:10)
[2022-10-03] MEDS: Melatonin 3mg tablet PO SCH (20:10)
[2022-10-03] MEDS: amLODIPine 5mg tablet PO SCH (20:12)
--- NOTE | 2022-10-03 21:44 | NUR ---
I have reviewed and agree with all medications administered and interventions performed by FABIANA Bowles.
[2022-10-03 22:00] VITALS: BP 120/72
--- NOTE | 2022-10-04 05:36 | NUR ---
Cared for patient during my shift. Patient is pleasant and enjoys talking. Patient ate breakfast, lunch and dinner by herself. Patient did have a shower today and nursing students helped. patient worked with PT. Discharge orders are in and waiting on transport to patient home.
[2022-10-04 06:00] VITALS: BP 113/77
--- NOTE | 2022-10-04 06:24 | NUR ---
Problems reprioritized. Patient report given, questions answered & plan of care reviewed with Leyla JUNG.
--- NOTE | 2022-10-04 06:43 | NUR ---
Patient in room [facility] 359. I have received report from FABIANA Alexis and had the opportunity to ask questions and assume patient care.
[2022-10-04] MEDS: K and/or MAG REPLACEMENT MC SCH (08:00)
[2022-10-04] MEDS: lactose-reduced food (Ensure High Protein) 237ml bottle PO SCH ×2 (08:16→13:16)
[2022-10-04] MEDS: ESCITALOPRAM OXALATE 5 MG TABLET PO SCH (08:17)
[2022-10-04] MEDS: heparin, porcine 5000 units/ml vial SQ SCH (08:17)
[2022-10-04] MEDS: docusate sod 100mg capsule PO SCH (08:17)
--- NOTE | 2022-10-04 14:59 | NUR ---
SERVICE LOSS CONTROL CONSULTANT documentation: I have reviewed and agree with all interventions, assessments performed and documented by Leyla London LVN.
--- NOTE | 2022-10-04 17:58 | NUR ---
Discharge information was review with patient and her daughter Sheba Corona, whom verbalize understanding and signed patient discharge paperwork and took patient's belongings home with her. [facility] was here to transport patient home.
== END 2022-10-04 17:55 | disposition home or self-care (01) | DRG 52 ==
LOC: ER 11:23 → EDBD 23:35 → ED HOLD 23:35 → SUR 3N 09-15 19:00 → PCU 3S 09-17 13:45 → SUR 3N 09-19 00:30
PROVIDERS: ADMIT Internal Medicine; ATTEND Family Medicine
DX: G93.40 Encephalopathy, unspecified (principal); F02.C18 Dementia in other diseases classified elsewhere, severe, with other behavioral disturbance; E44.0 Moderate protein-calorie malnutrition; N13.4 Hydroureter; Z68.21 Body mass index [BMI] 21.0-21.9, adult; E78.5 Hyperlipidemia, unspecified; R53.1 Weakness; R26.9 Unspecified abnormalities of gait and mobility; F31.9 Bipolar disorder, unspecified; G47.00 Insomnia, unspecified; I10 Essential (primary) hypertension; M47.9 Spondylosis, unspecified; M48.07 Spinal stenosis, lumbosacral region; N83.9 Noninflammatory disorder of ovary, fallopian tube and broad ligament, unspecified; Z79.899 Other long term (current) drug therapy; Z90.710 Acquired absence of both cervix and uterus; Z91.81 History of falling
CPT/HCPCS: 36415; 70551; 72146; 72148; 73521; 80053; 81001; 82607; 83605; 84443; 85007; 85025; 85651; 87040; 87081; 97110; 97116; 97161; 97530; 99285; A4358; A5200; G0378; J1644; J2060; J7030

== ENCOUNTER → 2023-05-15 | Outpatient (CLI) | payer MEDICAID ==
[~2023-05-15] MED LIST: AMLO10TA PO; ERGO50002 PO; HALO2TAB PO; MELA1TAB52 PO
== END | disposition home or self-care (01) ==
LOC: RAD 07:48
PROVIDERS: ATTEND Psychiatry & Neurology Neurology
DX: R41.82 Altered mental status, unspecified (principal)
CPT/HCPCS: 95816

== ENCOUNTER 2023-09-25 09:04 | Day surgery (SDC) | payer MEDICAID ==
[~2023-09-25] VITALS: Ht 170.2 cm; Wt 60.0 kg
[2023-09-25] VITALS (7 sets, daily range): BP systolic 115–132; BP diastolic 79–91; PULSE 69–77; RESP 14; TEMP 98.2; O2SAT 97–99
[2023-09-25] MEDS ORDERED: LAMO25TA5 PO (09:52)
[2023-09-25] MEDS ORDERED: TRAZ-251 PO (09:52)
[2023-09-25] MEDS ORDERED: ESCI20TA39 PO (09:53)
[2023-09-25] MEDS ORDERED: ERGO500054 PO (09:53)
[2023-09-25] MEDS ORDERED: OMEP20CA16 PO (09:54)
== END 2023-09-25 13:15 | disposition home or self-care (01) ==
LOC: SSTAY O 09:04
PROVIDERS: ATTEND Psychiatry & Neurology Neurology
DX: R27.0 Ataxia, unspecified (principal); R41.82 Altered mental status, unspecified; E86.0 Dehydration; F31.9 Bipolar disorder, unspecified; E78.5 Hyperlipidemia, unspecified; F41.9 Anxiety disorder, unspecified; I10 Essential (primary) hypertension; J44.9 Chronic obstructive pulmonary disease, unspecified; E55.9 Vitamin D deficiency, unspecified; Z88.8 Allergy status to other drugs, medicaments and biological substances; Z72.89 Other problems related to lifestyle; Z85.41 Personal history of malignant neoplasm of cervix uteri; Z79.899 Other long term (current) drug therapy; Z87.891 Personal history of nicotine dependence; Z82.3 Family history of stroke; Z82.49 Family history of ischemic heart disease and other diseases of the circulatory system; Z81.8 Family history of other mental and behavioral disorders
CPT/HCPCS: 62328; 77002; A4620; A6449

== ENCOUNTER 2023-09-27 16:36 | Emergency (ER) | payer MEDICAID ==
[~2023-09-27] VITALS: Ht 167.6 cm; Wt 63.6 kg
[~2023-09-27 16:36] MED LIST changes: +ERGO500054 PO; +ESCI20TA39 PO; +LAMO25TA5 PO; +OMEP20CA16 PO; +TRAZ-251 PO
--- NOTE | 2023-09-27 17:30 | NUR ---
PER PT SHE DOES NOT WANT HER DAUGHTER SELVIN MITCHELL [phone] TO COME INTO HER ROOM BUT AGREED FOR STAFF TO DISCUSS ALL OF HER HEALTH HISTORY.
[2023-09-27 17:59] LABS: BASOPHILS % (AUTO) 0.5 % (0-1); EOSINOPHILS % (AUTO) 0.5 % (0-6); HEMATOCRIT 41.3 % (35.0-45.0); HEMOGLOBIN 13.8 g/dl (12.0-16.0); LYMPHOCYTES # (AUTO) 1.9 X10'3 (1.1-4.8); LYMPHOCYTES % (AUTO) 33.1 % (21-51); MEAN CORPUSCULAR HGB CONC 33.4 g/dL (33.0-36.5); MEAN CORPUSCULAR VOLUME 92.9 FL (78-98); MEAN PLATELET VOLUME 8.3 FL (7.4-10.4); MONOCYTES # (AUTO) 0.5 X10'3 (0-0.9); MONOCYTES % (AUTO) 7.9 % (2-12); NEUTROPHILS # (AUTO) 3.4 X10'3 (1.8-7.7); PLATELET COUNT 267 X10'3 (140-440); RED BLOOD COUNT 4.44 X10'6 (4.20-5.60); RED CELL DISTRIBUTION WIDTH 13.4 % (11.5-14.5); WHITE BLOOD COUNT 5.8 X10'3 (4.5-11.0)
[2023-09-27 18:18] LABS: ALANINE AMINOTRANSFERASE 13 U/L (12-78); ALBUMIN 3.5 G/DL (3.4-5.0); ALBUMIN/GLOBULIN RATIO 1.1 (1.1-1.5); ALKALINE PHOSPHATASE 78 IU/L (46-116); ANION GAP 9 (8-16); ASPARTATE AMINO TRANSFERASE 9 U/L (10-37); BILIRUBIN,TOTAL 0.5 MG/DL (0.1-1.0); BLOOD UREA NITROGEN 13 MG/DL (7-18); BUN/CREATININE RATIO 15.7 (10.0-20.0); CALCIUM 8.7 MG/DL (8.5-10.1); CHLORIDE 106 MMOL/L (99-107); CREATININE 0.83 MG/DL (0.40-0.90); GLUCOSE 92 MG/DL (70-104); POTASSIUM 3.6 MMOL/L (3.5-5.1); SODIUM 139 MMOL/L (135-145); TOTAL CARBON DIOXIDE 24.1 MMOL/L (24-32); TOTAL PROTEIN 6.6 G/DL (6.4-8.2); eCRCL 65 ML/MIN; eGFR 69 ML/MIN
[2023-09-27 18:27] LABS: THYROID STIMULATING HORMONE 0.75 ulU/ml (0.34-4.50)
--- NOTE | 2023-09-27 18:35 | NUR ---
PT DAUGHTER PROVIDED LIST OF HOME MEDS. LIST PROVIDED TO LAMBERTO VALLECILLO RN AND SHE WILL COMPLETER MED REC.
[2023-09-27] MEDS ORDERED: HYDR-3927 PO (18:44)
[2023-09-27] MEDS ORDERED: AMLO10TA13 PO (18:44)
[2023-09-27 20:03] LABS: ETHANOL < 10 MG/DL (<10)
[2023-09-27] MEDS ORDERED: OLANZapine 2.5MG tablet PO ONE (21:45)
[2023-09-27 23:32] LABS: BILIRUBIN,URINE SMALL (Neg); CLARITY,URINE SLIGHTLY CLOUDY (Clear); COLOR,URINE YELLOW (Yellow); GLUCOSE, URINE NEGATIVE (Neg); KETONES,URINE 15 mg/dl (Neg); LEUKOCYTE ESTERASE ,URINE NEGATIVE (Neg); NITRITES, URINE NEGATIVE (Neg); OCCULT BLOOD,URINE TRACE-INTACT (Neg); PH,URINE 5.5 (4.8-8.0); PROTEIN,URINE NEGATIVE (Neg); URINE AMPHETAMINE SCREEN NEGATIVE (Neg); URINE BARBITUATE SCREEN NEGATIVE (Neg); URINE BENZODIAZEPINES SCREEN NEGATIVE (Neg); URINE CANNABINOID SCREEN POSITIVE (Neg); URINE COCAINE SCREEN NEGATIVE (Neg); URINE METHADONE SCREEN NEGATIVE (Neg); URINE OPIATE SCREEN NEGATIVE (Neg); URINE PHENCYCLIDINE SCREEN NEGATIVE (Neg)
[2023-09-27 23:33] LABS: UA COLLECTION TYPE STRAIGHT CATH
[2023-09-27 23:46] LABS: RBC,URINE 0-2 /HPF (0-2); WBC,URINE 0-4 /HPF (0-4)
[2023-09-27 23:47] LABS: BACTERIA,URINE NONE SEEN /HPF (Neg); MUCUS STRANDS MANY /LPF (Neg); SQUAMOUS EPITHELIAL CELL,UR MANY /LPF (FEW)
[2023-09-28] MEDS ORDERED: ONDA8TAB13 PO (01:14)
[2023-09-28] MEDS ORDERED: hydrOXYzine 25 MG tablet PO PRN (01:30)
[2023-09-28 01:46] VITALS: TEMP 97.7
--- NOTE | 2023-09-28 06:54 | NUR ---
pt placed on hospital bed
[2023-09-28] MEDS ORDERED: ESCITALOPRAM 10 mg tablet 10 MG TABLET PO SCH (08:00)
[2023-09-28] MEDS ORDERED: lamoTRIgine 25mg tablet PO SCH (08:00)
[2023-09-28] MEDS ORDERED: prazosin 1mg capsule PO SCH (08:00)
--- NOTE | 2023-09-28 09:07 | NUR ---
spoke with case management. they will come see the patient and speak with the daugther
[2023-09-28 09:57] VITALS: BP 137/92; PULSE 73; RESP 16; O2SAT 96
--- NOTE | 2023-09-28 14:53 | NUR ---
pt reports is feeing better and would like to be discharged, will advise provider
--- NOTE | 2023-09-28 15:28 | NUR ---
FAMILY CAME IN TO SEE THE PATIENT. THEY SAID SHE IS MUCH BETTER AND THEY ARE WANTING TO TAKE HER HOME. MD AGREED THAT THE PATIENT COULD BE DC.
[2023-09-28] MEDS ORDERED: Melatonin 3mg tablet PO SCH (21:00)
[2023-09-28] MEDS ORDERED: prazosin 1mg capsule PO ONE (21:00)
== END 2023-09-28 15:30 | disposition home or self-care (01) ==
LOC: ER 16:37
DX: F03.90 Unspecified dementia, unspecified severity, without behavioral disturbance, psychotic disturbance, mood disturbance, and anxiety (principal); F41.9 Anxiety disorder, unspecified
CPT/HCPCS: 36415; 70450; 71045; 80053; 80305; 80320; 81001; 82140; 84443; 84484; 85025; 86592; 93005; 99285; A4353

== ENCOUNTER → 2024-05-19 | Outpatient (CLI) | payer MEDICAID ==
[~2024-05-19] VITALS: Ht 167.6 cm; Wt 68.0 kg
[~2024-05-19] MED LIST changes: -AMLO10TA PO; +AMLO10TA13 PO; -ERGO50002 PO; -HALO2TAB PO; +HYDR-3927 PO; -OMEP20CA16 PO; +ONDA8TAB13 PO; -TRAZ-251 PO
[2024-05-19] MEDS: albuterol 2.5 MG/3 ML nebule NEB ONE (16:41)
[2024-05-19 16:45] VITALS: PULSE 80; RESP 14; O2SAT 98
== END | disposition home or self-care (01) ==
LOC: RT 15:50
PROVIDERS: ATTEND Family Medicine
DX: J44.9 Chronic obstructive pulmonary disease, unspecified (principal)
CPT/HCPCS: 94060; 94729; 94760